=== PATIENT | male | born 2000 | race Caucasian/White ===

== ENCOUNTER 2025-02-11 09:04 | Emergency (ER) | payer OTHER ==
[2025-02-11] MEDS: Diphtheria,Pertussis(Acell),Tetanus Vaccine 0.5 ML Syringe IM ONE (09:27)
== END 2025-02-11 09:52 | disposition home or self-care (01) ==
LOC: LL.ED 09:04
DX: S01.511A Laceration without foreign body of lip, initial encounter (principal); Z23 Encounter for immunization; Z79.899 Other long term (current) drug therapy; W26.8XXA Contact with other sharp object(s), not elsewhere classified, initial encounter
CPT/HCPCS: 12011; 90471; 90715; 99282; J2003